=== PATIENT | female | born 1990 | race Caucasian/White ===

== ENCOUNTER 2020-05-07 13:38 | Emergency (ER) | payer OTHER, SELFPAY ==
[2020-05-07 13:52] VITALS: BP 124/67; PULSE 88; RESP 16; TEMP 36; O2SAT 100; BMI 25.0
--- NOTE | 2020-05-07 14:53 | ED.DIZZY ---
HPI - Dizziness General Chief Complaint: Dizziness Stated Complaint: Dizziness, nausea Time Seen by Provider: 05/07/20 14:46 Source: patient Mode of arrival: ambulatory Limitations: no limitations History of Present Illness MD elicited complaint: dizziness and other (sinus headches) Onset (ago): day(s) (yesterday) Timing: sudden onset and intermittent Severity: mild Description: room spinning History of similar symptoms: No Exacerbating factors: other (turning head to right, ear feels full) Relieving factors: remaining still Associated symptoms: nasal congestion and ear fullness Related Data Previous Rx's Medication Instructions Recorded amoxicillin 500 mg PO BID 7 Days #14 cap 05/07/20 meclizine 25 mg PO TID PRN #30 tab 05/07/20 ondansetron 4 mg PO Q8H PRN #20 tab 05/07/20 Allergies Allergy/AdvReac Type Severity Reaction Status Date / Time No Known Allergies Allergy Unverified 02/09/20 18:48 Review of Systems Review of Systems: Constitutional : No Fever, No Chills, No Fatigue ENT/Mouth : No sore throat, No Rhinorrhea, positive congestion, full feeling R ear Eyes: No Eye Pain, No Swelling, No Redness Cardiovascular : No Chest Pain, No SOB, No Dyspnea on Exertion Respiratory : No Cough, No Sputum Gastrointestinal : No Nausea, No Vomiting, No Diarrhea, No abdominal Pain Genitourinary : No Dysuria, No Urinary Frequency, No Hematuria, Musculoskeletal : No joint pain, No Myalgias, No Joint Swelling Skin : No Skin Lesions, No rash Neuro : No Weakness, No Numbness, pos Dizziness, positive Headache Psych : No Anxiety/Panic, No Depression Heme/Lymph: No Bruising, No Bleeding,No Lymphadenopathy Endocrine : No Polyuria, No Polydipsia All other systems reviewed and are negative [facility] Past Medical History Attestation statement: The following information was validated with the patient. Medical History Hypoglycemia Social History Social History (Updated 05/07/20 @ 14:54 by Martha Lopez DO) Use of substances other than those prescribed or required for medical reasons: No Advance Directives: No Advance Directives Information Provided: Yes Physical Exam Vital Signs: Vital Signs: Last Vital Signs Temp 96.8 F 05/07/20 13:52 Pulse 88 05/07/20 13:52 Resp 16 05/07/20 13:52 BP 124/67 05/07/20 13:52 Pulse Ox 100 05/07/20 13:52 Body Mass Index 25.0 Appearance: Alert. Oriented X3. No acute distress. Eyes: Pupils equal, round and reactive to light. ENT: Pharynx normal. Sinus ttp R and L maxillary, R ear TM serous effusion no erythema Neck: Normal inspection. Neck supple. CVS: Normal heart rate and rhythm. Pulses normal. Respiratory: No respiratory distress. Breath sounds normal. Abdomen: Soft and non-tender. Skin: Skin warm and dry. Normal skin color. Normal skin turgor. Extremities: No lower extremity edema. No calf ttp Neuro: Oriented X 3. No motor deficit. No sensory deficit. MDM - Dizziness MDM Narrative Medical decision making narrative: 30 yo female with sinus congestion, R ear fullness c/o dizziness when turning her head to the right likely sinusitis causing vertigo has no deficits, not toxic, start on oral antibiotics, meclizine Discharge Plan Discharge Clinical Impression: Vertigo Sinusitis Qualifiers: Sinusitis location: maxillary Chronicity: acute Recurrence: non-recurrent Qualified Code(s): J01.00 - Acute maxillary sinusitis, unspecified Patient Disposition: Home, Self-Care Instructions: Sinusitis (ED), Vertigo (ED) Additional Instructions: return to ED for any worsening symptoms or concerns Prescriptions: New meclizine 25 mg tablet 25 mg PO TID PRN (Reason: dizziness) Qty: 30 RF: 0 ondansetron 4 mg tablet,disintegrating 4 mg PO Q8H PRN (Reason: nausea and vomiting) Qty: 20 RF: 0 amoxicillin 500 mg capsule 500 mg PO BID 7 Days Qty: 14 RF: 0 Referrals: Geo Khan MD [Primary Care Provider] - 2 days (if not better) Stand Alone Forms: Work/School Release
[2020-05-07] MEDS: Meclizine HCl 25 MG TABLET PO (15:26)
[2020-05-07] MEDS: Amoxicillin 500 MG CAPSULE PO (15:26)
== END 2020-05-07 15:29 | disposition home or self-care (01) ==
PROVIDERS: Emergency Provider Emergency Medicine; PCP Internal Medicine
DX: R42 Dizziness and giddiness (principal); J01.00 Acute maxillary sinusitis, unspecified
CPT/HCPCS: 99283

== ENCOUNTER 2021-02-28 15:36 | Outpatient (REF) | payer OTHER, SELFPAY | END 2021-02-28 15:37 | disposition home or self-care (01) | LOC: HO.LAB 15:36 | PROVIDERS: PCP Internal Medicine; Visit Provider Internal Medicine | DX: Z20.822 Contact with and (suspected) exposure to COVID-19 (principal) | CPT/HCPCS: C9803; U0003; U0005 ==

== ENCOUNTER 2021-09-24 08:38 | Emergency (ER) | payer MEDICAID, SELFPAY ==
[2021-09-24 09:23] VITALS: BP 128/85; PULSE 80; RESP 19; TEMP 36.6; O2SAT 98; BMI 28.2
--- NOTE | 2021-09-24 09:57 | ED.BACK ---
HPI - Back Pain/Injury General Chief Complaint: Back Pain/Injury Stated Complaint: Lower back pain/Leg pain Time Seen by Provider: 09/24/21 09:40 Source: patient Mode of arrival: ambulatory History of Present Illness HPI Narrative: 31-year-old female with no significant past medical history presenting to the ED complaining of bilateral low back pain radiating bilateral lower extremities x1 month. Denies known injury/trauma or fall. Denies fever, chills, urinary incontinence/retention, weakness, numbness/tingling MD elicited complaint: back pain Onset (ago): month(s) Related Data Previous Rx's Medication Instructions Recorded amoxicillin 500 mg capsule 500 mg PO BID 7 Days #14 cap 05/07/20 meclizine 25 mg tablet 25 mg PO TID PRN #30 tab 05/07/20 ondansetron 4 mg disintegrating 4 mg PO Q8H PRN #20 tab 05/07/20 tablet cyclobenzaprine 5 mg tablet 5 mg PO Q8H PRN 5 Days #14 tab 09/24/21 lidocaine 5 % topical patch 1 patch TOPICAL DAILY PRN #30 ea 09/24/21 (Lidoderm) MDD remove after 12 hours naproxen 500 mg tablet 500 mg PO BID PRN 10 Days #20 tab 09/24/21 Allergies Allergy/AdvReac Type Severity Reaction Status Date / Time No Known Allergies Allergy Unverified 02/09/20 18:48 Review of Systems Review of Systems: Constitutional: No Weight loss, No Fever, No Chills ENT/Mouth: No Ear Pain, No Nasal Congestion, No Sinus Pain, No Hoarseness, No sore throat, No Rhinorrhea, No Swallowing Difficulty Cardiovascular: No Chest Pain, No SOB Respiratory: No Cough, No Sputum Gastrointestinal: No Nausea, No Vomiting, No Diarrhea, No Constipation, No Abdominal pain Genitourinary: No Dysuria, No Urinary Frequency, No Hematuria, No Urinary Incontinence/retention, No Flank Pain Musculoskeletal: + joint pain, No Myalgias, No Joint Swelling Skin: No Skin Lesions, No rash Neuro: No Weakness, No Numbness, No Paresthesias Yes all other systems are reviewed and are negative Neurologic: Denies Sensory deficit (Neuro) [facility] Past Medical History Attestation statement: The following information was validated with the patient. Medical History Hypoglycemia Social History Social History Advance Directives: No Advance Directives Information Provided: No Physical Exam Vital Signs: Vital Signs: Last Vital Signs Temp 98 F 09/24/21 09:23 Pulse 80 09/24/21 09:23 Resp 19 09/24/21 09:23 BP 128/85 09/24/21 09:23 Pulse Ox 98 09/24/21 09:23 BMI result Body Mass Index 28.2 Const: General: cooperative, healthy appearing and no acute distress Orientation/consciousness: patient oriented x3 Limitations: no limitations HEENT: Head: Yes normal to inspection and Yes atraumatic Ears: hearing grossly normal bilaterally General nose exam: Normal external nose present Face and sinus: Yes normal facial exam Eyes: General: appearance normal, both eyes and all related structures EOM: EOMs intact bilaterally Neck: Neck: Yes normal visual inspection and Yes no meningeal signs Resp: Effort & Inspection: normal respiratory effort and no respiratory distress Cardio: Rate: regular rate Heart sounds: S1 normal heart sound present and S2 normal heart sound present Peripheral pulses: dorsalis pedis present : General: Yes no CVA tenderness Back/Spine/Pelvis: Other: No midline thoracic/lumbar spinous tenderness/step-off or deformity Back: no CVA tenderness Skin: Rashes: no rashes Wounds: no wounds Neuro: Other: Strength intact throughout. No saddle anesthesia. Sensation intact to light touch. Neurovascular intact distally General: patient oriented x3, gait normal, tone normal, moves all extremities and no meningeal signs Gait exam (Neuro): Normal gait present Motor exam (neuro): 5/5 motor strength present throughout Sensory Exam: No Sensory deficit (Neuro) Extrem: General: Yes normal to inspection MDM - Back Pain/Injury MDM Narrative Medical decision making narrative: 31-year-old female with no significant past medical history presenting to the ED complaining of bilateral low back pain radiating bilateral lower extremities x1 month. On exam vital signs stable, NAD/nontoxic appearing, physical exam as above. No midline spinous tenderness throat, no red flag symptoms. No saddle anesthesia. Likely MSK pain/sciatica/muscle spasm. Low concern for cauda equina, cord compression or epidural abscess Medical Records Attestation: I reviewed the patient's medical records. Lab Data Attestation: I reviewed the patient's lab results. Discharge Plan Discharge Clinical Impression: Lumbar radiculopathy Patient Disposition: Home, Self-Care Instructions: Lumbar Radiculopathy (ED) Additional Instructions: Your pain is likely musculoskeletal Flexeril is a muscle relaxer, take at night as it makes you drowsy, do not drive, drink alcohol, or operate machinery while taking it Naproxen as an anti-inflammatory / pain medication, take with food Lidoderm patches are numbing patches, apply to painful area In addition take Tylenol at home If symptoms persist or worsen, pain becomes unbearable, you developed urinary retention or incontinence, or weakness return to the ED Prescriptions: New lidocaine [Lidoderm] 5 % adhesive patch,medicated 1 patch topical DAILY MDD remove after 12 hours PRN (Reason: pain) Qty: 30 0RF Rx Instructions: leave on most painful area for up to 12 hrs naproxen 500 mg tablet 500 mg PO BID PRN (Reason: pain) 10 Days Qty: 20 0RF cyclobenzaprine 5 mg tablet 5 mg PO Q8H PRN (Reason: pain (scale score 7-10)) 5 Days Qty: 14 0RF No Action meclizine 25 mg tablet 25 mg PO TID PRN (Reason: dizziness) Qty: 30 0RF ondansetron 4 mg tablet,disintegrating 4 mg PO Q8H PRN (Reason: nausea and vomiting) Qty: 20 0RF amoxicillin 500 mg capsule 500 mg PO BID 7 Days Qty: 14 0RF Referrals: Geo Khan MD [Primary Care Provider] - 5 days Stand Alone Forms: Work/School Release
== END 2021-09-24 10:43 | disposition home or self-care (01) ==
PROVIDERS: Emergency Provider Emergency Medicine; PCP Internal Medicine
DX: M54.16 Radiculopathy, lumbar region (principal); M54.50 Low back pain, unspecified; Z79.899 Other long term (current) drug therapy
CPT/HCPCS: 99283

== ENCOUNTER 2023-03-30 14:19 | Emergency (ER) | payer MEDICAID, SELFPAY ==
[2023-03-30 15:05] VITALS: BP 117/80; PULSE 86; RESP 16; TEMP 36.9; O2SAT 100; BMI 27.7
--- NOTE | 2023-03-30 15:10 | ED_ITS ---
HPI - General Adult General Chief complaint: Extremity Problem Stated complaint: abd pain?? Time Seen by Provider: 03/30/23 15:17 Source: patient, RN notes reviewed and old records reviewed Mode of arrival: ambulatory Limitations: no limitations History of Present Illness HPI narrative: 33-year-old female presents for evaluation of right arm pain. 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 Her pain does not usually hurt much throughout the day. At night she has a burning pain She denies any trauma to the area. She sleeps with her arm by her side Currently her pain is a 2/10 Related Data Previous Rx's Medication Instructions Recorded amoxicillin 500 mg capsule 500 mg PO BID 7 days #14 caps 05/07/20 meclizine 25 mg tablet 25 mg PO TID PRN dizziness #30 tabs 05/07/20 ondansetron 4 mg disintegrating 4 mg PO Q8H PRN nausea and 05/07/20 tablet vomiting #20 tabs cyclobenzaprine 5 mg tablet 5 mg PO Q8H PRN pain (scale score 09/24/21 7-10) 5 days #14 tabs lidocaine 5 % topical patch 1 patch topical DAILY PRN pain #30 09/24/21 (Lidoderm) ea naproxen 500 mg tablet 500 mg PO BID PRN pain 10 days #20 09/24/21 tabs cyclobenzaprine 5 mg tablet 5 mg PO TID PRN muscle spasm #15 03/30/23 tabs naproxen 500 mg tablet 500 mg PO BID PRN pain #20 tabs 03/30/23 Allergies Allergy/AdvReac Type Severity Reaction Status Date / Time No Known Allergies Allergy Unverified 02/09/20 18:48 Review of Systems Cardiovascular: Cardiovascular: Denies chest pain Musculoskeletal: Musculoskeletal: Reports arthralgias, Reports joint swelling and Reports limited range of motion Neurologic: Reports radicular pain PMFSH Past Medical History Medical History Hypoglycemia Physical Exam ED Vital Signs: Vital Signs - 24 hr 03/30/23 15:05 Temperature 98.5 F Pulse Rate 86 Respiratory Rate 16 Blood Pressure 117/80 Pulse Oximetry 100 Oxygen Delivery Method Room Air BMI result Body Mass Index 27.7 Const General: healthy appearing, comfortable, no acute distress, alert and awake Nutritional Appearance: well nourished Orientation/consciousness: patient oriented x3 HENMT Head: Yes normocephalic and Yes atraumatic Eyes Eyelids: Yes eyelids normal Conjunctivae: conjunctivae normal Sclerae: sclerae normal Corneas: corneas normal Pupils: Equal, round and reactive pupils present EOM: EOMs intact bilaterally Neck Neck: Yes full ROM Skin General skin exam: elasticity normal Neuro General: patient oriented x3 Cranial nerves: Yes Equal, round and reactive pupils present and Yes Bilaterally intact EOM present Cognition (Neuro): normal cognition Extrem Other: Moving all extremities well without any obvious deformities. No tenderness or deformity to the right upper extremity. Negative Sanna test, negative Tinel test Medical Decision Making Medical Decision Making MDM Narrative: 33-year-old female presents for evaluation of right arm pain. She describes radicular pain. Her pain is worse at night. There was no trauma, there is no indication for emergent imaging at this. Will treat symptomatically. Differential Diagnosis Differential Diagnoses: The differential diagnosis associated with the presentation includes Radiculopathy Bursitis Carpal tunnel syndrome Arm pain lateral epicondylitis Discharge Plan Discharge Clinical Impression: Arm pain, right Patient Disposition: Home, Self-Care Instructions: Arm Pain (ED) Additional Instructions: Your pain is most likely related to an overuse injury such as bursitis or carpal tunnel syndrome Use naproxen as needed for pain. You may use cyclobenzaprine as needed for muscle spasms. This may make you sleepy, did not drink alcohol or drive after taking it Prescriptions: New cyclobenzaprine 5 mg tablet 5 mg PO TID PRN (Reason: muscle spasm) Qty: 15 0RF naproxen 500 mg tablet 500 mg PO BID PRN (Reason: pain) Qty: 20 0RF No Action meclizine 25 mg tablet 25 mg PO TID PRN (Reason: dizziness) Qty: 30 0RF ondansetron 4 mg tablet,disintegrating 4 mg PO Q8H PRN (Reason: nausea and vomiting) Qty: 20 0RF amoxicillin 500 mg capsule 500 mg PO BID 7 Days Qty: 14 0RF lidocaine [Lidoderm] 5 % adhesive patch,medicated 1 patch topical DAILY MDD remove after 12 hours PRN (Reason: pain) Qty: 30 0RF Rx Instructions: leave on most painful area for up to 12 hrs naproxen 500 mg tablet 500 mg PO BID PRN (Reason: pain) 10 Days Qty: 20 0RF cyclobenzaprine 5 mg tablet 5 mg PO Q8H PRN (Reason: pain (scale score 7-10)) 5 Days Qty: 14 0RF Stand Alone Forms: Work/School Release
== END 2023-03-30 15:30 | disposition home or self-care (01) ==
LOC: HO.ED 15:23
PROVIDERS: Emergency Provider Emergency Medicine; PCP Internal Medicine
DX: M79.601 Pain in right arm (principal); Z79.899 Other long term (current) drug therapy
CPT/HCPCS: 99282; 99283

== ENCOUNTER 2023-06-24 14:42 | Outpatient (REF) | payer MEDICAID, SELFPAY ==
[2023-06-25 17:38] LABS: Mumps Virus IgG Antibody <9.00 AU/mL; Rubella IgG Antibody 5.45 Index
== END 2023-06-24 14:43 | disposition home or self-care (01) ==
LOC: HO.HHCL 14:42
PROVIDERS: Visit Provider Internal Medicine
DX: Z00.00 Encounter for general adult medical examination without abnormal findings (principal)
CPT/HCPCS: 36415; 86735; 86762; 86765

== ENCOUNTER 2023-10-15 06:31 | Emergency (ER) | payer MEDICAID, SELFPAY ==
[2023-10-15 06:45] VITALS: BP 102/54; PULSE 115; RESP 16; TEMP 36.7; O2SAT 97; BMI 27.3
--- NOTE | 2023-10-15 07:25 | ED.NAVMDI ---
HPI - Nausea/Vomiting/Diarrhea General Chief complaint: Abdominal Pain Stated complaint: abd pain, vomiting, diarrhea Time Seen by Provider: 10/15/23 07:20 Source: patient and family Mode of arrival: ambulatory Limitations: no limitations History of Present Illness ED Provider: CADEN MONTAGUE Narrative: 33 yo female no PMH here with c/o abrupt onset n/v/d and abdominal cramps denies sick contacts, travel, food exposures or antiboitic use. 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 Notes symptoms came out of nowhere at the same time. Feels weak and tired. MD elicited complaint: nausea, vomiting, diarrhea and abdominal pain Onset (ago): day(s) (yesterday ) Description of vomiting: food contents and watery Description of diarrhea: watery Associated nausea: Yes Associated abdominal pain: Yes Location of pain: diffuse Radiation: diffuse Pain consistency: intermittent Severity: moderate Quality: cramping Exacerbating factors: eating Relieving factors: none Associated symptoms: myalgias, headaches, malaise, nausea/vomiting and weakness Related Data Previous Rx's ?Medication ?Instructions ?Recorded amoxicillin 500 mg capsule 500 mg PO BID 7 days #14 caps 05/07/20 meclizine 25 mg tablet 25 mg PO TID PRN dizziness #30 tabs 05/07/20 ondansetron 4 mg disintegrating 4 mg PO Q8H PRN nausea and 05/07/20 tablet vomiting #20 tabs cyclobenzaprine 5 mg tablet 5 mg PO Q8H PRN pain (scale score 09/24/21 7-10) 5 days #14 tabs lidocaine 5 % topical patch 1 patch topical DAILY PRN pain #30 09/24/21 (Lidoderm) ea naproxen 500 mg tablet 500 mg PO BID PRN pain 10 days #20 09/24/21 tabs cyclobenzaprine 5 mg tablet 5 mg PO TID PRN muscle spasm #15 03/30/23 tabs naproxen 500 mg tablet 500 mg PO BID PRN pain #20 tabs 03/30/23 ondansetron 4 mg disintegrating 4 mg PO Q8H PRN nausea and 10/15/23 tablet vomiting #20 tabs Allergies Allergy/AdvReac Type Severity Reaction Status Date / Time No Known Allergies Allergy Unverified 10/15/23 06:47 Review of Systems Review of Systems: Constitutional : No Weight loss, No Fever, pos Chills ENT/Mouth : No sore throat, No Rhinorrhea Eyes: No Swelling, No Redness Cardiovascular : No Chest Pain, No SOB, NoEdema Respiratory : No Cough, No Sputum, No Wheezing Gastrointestinal : Positive Nausea, Positive Vomiting, positive Diarrhea, positive abdominal Pain, No Hematochezia, No Melena Genitourinary : No Dysuria, No Urinary Frequency, No Hematuria, No Urgency Musculoskeletal : No joint pain, No Myalgias, No Joint Swelling Skin : No Skin Lesions, No rash Neuro : pos Weakness, No Numbness, No Dizziness, No Headache Psych : No Anxiety/Panic, No Depression All other systems reviewed and are negative. Gastrointestinal: Gastrointestinal: Reports nausea PMFSH Past Medical History Attestation statement: The following information was validated with the patient. Source: old records reviewed Medical History Hypoglycemia Social History Social History (Updated 10/15/23 @ 07:42 by Maxine Lopez DO) Patient Tobacco Use Status: Never used Tobacco Advance Directives: No Advance Directives Information Provided: Yes Do you have a plan to hurt others: No Plan Physical Exam Vital Signs: Vital Signs: Last Vital Signs Temp 98.3 F 10/15/23 11:55 Pulse 91 10/15/23 11:55 Resp 18 10/15/23 11:55 BP 96/48 L 10/15/23 11:55 Pulse Ox 97 10/15/23 11:55 O2 Del Method Room Air 10/15/23 11:55 BMI result Body Mass Index 27.3 Appearance: Alert. Oriented X3. No acute distress. Eyes: Pupils equal, round and reactive to light. ENT: Pharynx dry MM Neck: Normal inspection. Neck supple. CVS: Normal heart rate and rhythm. Pulses normal. Respiratory: No respiratory distress. Breath sounds normal. Abdomen: Soft and mild epigastric ttp no rebound Skin: Skin warm and dry. pale skin color. Normal skin turgor. Extremities: No lower extremity edema. Neuro: Oriented X 3. No motor deficit. No sensory deficit. Course Course Course Narrative: tolerating PO feels better after 2L of IVF - up and walking Medications Administered Discontinued Medications Generic Name Dose Route Start Last Admin Trade Name Freq PRN Reason Stop Dose Admin Lactated Ringer's 1,000 mls @ 999 mls/hr 10/15/23 07:30 10/15/23 10:38 Lr IV 10/15/23 08:30 Infused .Q1H1M WILBER Infusion Lactated Ringer's 1,000 mls @ 999 mls/hr 10/15/23 07:30 10/15/23 10:38 Lr IV 10/15/23 08:30 Infused .Q1H1M WILBER Infusion Ketorolac Tromethamine 15 mg 10/15/23 07:24 10/15/23 08:19 Ketorolac Tromethamine 15 Mg/Ml Vial IVPUSH 10/15/23 07:25 15 mg ONCE ONE Administration Ondansetron HCl 4 mg 10/15/23 07:24 10/15/23 08:19 Ondansetron Hcl 4 Mg/2 Ml Vial IVPUSH 10/15/23 07:25 4 mg ONCE ONE Administration Medical Decision Making Medical Decision Making MDM Narrative: 33 yo female with hx of hypoglycemia here with c/o abrupt onset n/v/d cramping of abdomen without known exposures or triggers at this time will obtain glucose, labs, UA and hydrate with 2L of IVF, supportive meds ordered. She has no localized ttp of RUQ or RLQ to suggest appy or biliary colic. Seems viral given onset and rapidity. Differential Diagnosis Differential Diagnoses: The differential diagnosis associated with the presentation includes viral syndrome, hypoglycemia Admission/Observation Consideration of admission/observation: Escalation of care including admission/observation considered tolerating PO feels much better stable for DC Lab Data [facility] Lab Attestation statement: I reviewed the patient's lab results. 10/15/23 08:00 10/15/23 08:00 Labs: Lab Results 10/15/23 10/15/23 10/15/23 Range/Units 07:44 08:00 09:23 WBC 12.6 H (4.8-10.8) X10*3/uL RBC 4.25 (4.20-5.50) X10*6/uL Hgb 12.3 (12.0-16.0) g/dl Hct 36.6 L (37.0-47.0) % MCV 86.1 (80.0-98.0) fL MCH 28.9 (27.0-33.0) pg MCHC 33.6 (31.0-35.0) g/dl RDW 13.2 (11.0-16.0) % Plt Count 292 (160-400) X10*3/uL MPV 9.8 (9.4-12.3) fL Immature Gran % (Auto) 0.2 (0.0-0.4) % Neut % (Auto) 91.8 H (45-73) % Lymph % (Auto) 2.6 L (20-40) % [place] % (Auto) 5.2 (2-11) % Eos % (Auto) 0.0 (0-4) % Baso % (Auto) 0.2 (0-2) % Lymph # (Auto) 0.3 L (1.2-4.9) X10*3/uL [place] # (Auto) 0.7 (0.1-1.2) X10*3/uL Eos # (Auto) 0.0 (0.0-0.4) X10*3/uL Baso # (Auto) 0.0 (0.0-0.2) X10*3/uL Abs Immat Gran (auto) 0.03 (0.00-0.03) X10*3/uL Absolute Neuts (auto) 11.6 H (2.0-8.3) x10*3/uL Absolute Nucleated RBC 0.000 (0.0-0.012) X10*3/uL Nucleated RBC % (auto) 0.0 (0.0-0.2) /100WBC Smear Tech's Comments VERIFIED Sodium 140 (135-145) mmol/L Potassium 3.7 (3.3-5.1) mmol/L Chloride 106 (96-108) mmol/L Carbon Dioxide 22 (22-29) mmol/L Anion Gap 16 (12-20) BUN 15 (9-16) mg/dL Creatinine 0.83 (0.5-1.4) mg/dL Estim Creat Clear Calc 72.0 Estimated GFR > 60 POC Glucose 120 H (60-115) mg/dL Random Glucose 132 H (60-115) mg/dL Calcium 9.6 (8.4-10.2) mg/dL Total Bilirubin 0.4 (0.0-1.0) mg/dL Direct Bilirubin 0.2 (0.0-0.5) mg/dL AST 17 (5-31) U/L ALT 10 (0-31) U/L Alkaline Phosphatase 79 (39-117) U/L Total Protein 8.6 H (6.5-8.0) g/dL Albumin 4.2 (3.5-5.0) g/dL Lipase 63 (8-78) U/L Beta HCG, Quant < 2 mIU/mL Urine Color Urine Appearance Urine pH (5.0-9.0) Ur Specific [place] (1.005-1.025) Urine Protein (Neg-Trace) mg/dL Urine Glucose (UA) (Negative) mg/dL Urine Ketones (Negative) mg/dL Urine Blood (Negative) Urine Nitrite (Negative) Ur Leukocyte Esterase (Negative) Urine RBC (0-2) /HPF Urine WBC (0-5) /HPF Ur Squamous Epith Cells (0-2) /HPF Urine Bacteria (None Seen) Hyaline Casts (0-2) /LPF Influenza Type A (PCR) NEGATIVE (Negative) Influenza Type B (PCR) NEGATIVE (Negative) RSV RNA Qual (PCR) NEGATIVE (Negative) SARS-CoV-2 RNA (RT-PCR) NEGATIVE (Negative) 10/15/23 Range/Units 10:40 WBC (4.8-10.8) X10*3/uL RBC (4.20-5.50) X10*6/uL Hgb (12.0-16.0) g/dl Hct (37.0-47.0) % MCV (80.0-98.0) fL MCH (27.0-33.0) pg MCHC (31.0-35.0) g/dl RDW (11.0-16.0) % Plt Count (160-400) X10*3/uL MPV (9.4-12.3) fL Immature Gran % (Auto) (0.0-0.4) % Neut % (Auto) (45-73) % Lymph % (Auto) (20-40) % [place] % (Auto) (2-11) % Eos % (Auto) (0-4) % Baso % (Auto) (0-2) % Lymph # (Auto) (1.2-4.9) X10*3/uL [place] # (Auto) (0.1-1.2) X10*3/uL Eos # (Auto) (0.0-0.4) X10*3/uL Baso # (Auto) (0.0-0.2) X10*3/uL Abs Immat Gran (auto) (0.00-0.03) X10*3/uL Absolute Neuts (auto) (2.0-8.3) x10*3/uL Absolute Nucleated RBC (0.0-0.012) X10*3/uL Nucleated RBC % (auto) (0.0-0.2) /100WBC Smear Tech's Comments Sodium (135-145) mmol/L Potassium (3.3-5.1) mmol/L Chloride (96-108) mmol/L Carbon Dioxide (22-29) mmol/L Anion Gap (12-20) BUN (9-16) mg/dL Creatinine (0.5-1.4) mg/dL Estim Creat Clear Calc Estimated GFR POC Glucose (60-115) mg/dL Random Glucose (60-115) mg/dL Calcium (8.4-10.2) mg/dL Total Bilirubin (0.0-1.0) mg/dL Direct Bilirubin (0.0-0.5) mg/dL AST (5-31) U/L ALT (0-31) U/L Alkaline Phosphatase (39-117) U/L Total Protein (6.5-8.0) g/dL Albumin (3.5-5.0) g/dL Lipase (8-78) U/L Beta HCG, Quant mIU/mL Urine Color Yellow Urine Appearance Clear Urine pH 5.5 (5.0-9.0) Ur Specific [place] 1.025 (1.005-1.025) Urine Protein Trace (Neg-Trace) mg/dL Urine Glucose (UA) Negative (Negative) mg/dL Urine Ketones Negative (Negative) mg/dL Urine Blood Large (3+) H (Negative) Urine Nitrite Negative (Negative) Ur Leukocyte Esterase Negative (Negative) Urine RBC 3-5 H (0-2) /HPF Urine WBC 0-5 (0-5) /HPF Ur Squamous Epith Cells 3-5 (0-2) /HPF Urine Bacteria Trace (None Seen) Hyaline Casts 0-2 (0-2) /LPF Influenza Type A (PCR) (Negative) Influenza Type B (PCR) (Negative) RSV RNA Qual (PCR) (Negative) SARS-CoV-2 RNA (RT-PCR) (Negative) Independent Historian Clinical information obtained from an independent historian. History obtained from or confirmed by: Other (family) External Record Review External record reviewed: Office record Prescription Management I considered prescription management with: Other Critical Care Time Critical Care Time Critical Care Time: Yes Total Critical Care Time: 35 Attestation: 2L of IVF resuscitation for dehydration I attest to this time spent taking care of the patient Discharge Plan Discharge Clinical Impression: Nausea vomiting and diarrhea, Acute viral syndrome Patient Disposition: Home, Self-Care Instructions: Acute Nausea and Vomiting (ED), Viral Syndrome (ED) Additional Instructions: stay hydrated return for worsening pain fevers, bloody stools, unable to eat or drink, fainting or any other concerns bland diet for 24 hours then advance slowly Prescriptions: New ondansetron 4 mg tablet,disintegrating 4 mg PO Q8H PRN (Reason: nausea and vomiting) Qty: 20 0RF No Action meclizine 25 mg tablet 25 mg PO TID PRN (Reason: dizziness) Qty: 30 0RF ondansetron 4 mg tablet,disintegrating 4 mg PO Q8H PRN (Reason: nausea and vomiting) Qty: 20 0RF amoxicillin 500 mg capsule 500 mg PO BID 7 Days Qty: 14 0RF lidocaine [Lidoderm] 5 % adhesive patch,medicated 1 patch topical DAILY MDD remove after 12 hours PRN (Reason: pain) Qty: 30 0RF Rx Instructions: leave on most painful area for up to 12 hrs naproxen 500 mg tablet 500 mg PO BID PRN (Reason: pain) 10 Days Qty: 20 0RF cyclobenzaprine 5 mg tablet 5 mg PO Q8H PRN (Reason: pain (scale score 7-10)) 5 Days Qty: 14 0RF cyclobenzaprine 5 mg tablet 5 mg PO TID PRN (Reason: muscle spasm) Qty: 15 0RF naproxen 500 mg tablet 500 mg PO BID PRN (Reason: pain) Qty: 20 0RF Stand Alone Forms: Work/School Release Interventions: ED Discharge Assessment Last Done: 10/15/23 11:55 Discharge Date/Time: 10/15/23 11:55 Print Language: [place]ar[place]uan
[2023-10-15 07:48] LABS: Glucose, Whole Blood 120 mg/dL (60-115)
[2023-10-15 08:01] VITALS: BP 98/55; PULSE 100; RESP 20; TEMP 37.3; O2SAT 100
[2023-10-15 08:10] LABS: Basophils Percent Auto 0.2 % (0-2); Hematocrit 36.6 % (37.0-47.0); Hemoglobin 12.3 g/dl (12.0-16.0); Imm Gran Abs Auto 0.03 X10*3/uL (0.00-0.03); Imm Gran Pct Auto 0.2 % (0.0-0.4); Lymphocytes Absolute Auto 0.3 X10*3/uL (1.2-4.9); Lymphocytes Percent Auto 2.6 % (20-40); MANUAL DIFF FLAG SCAN; Mean Corpuscular HGB Conc 33.6 g/dl (31.0-35.0); Mean Corpuscular Hemoglobin 28.9 pg (27.0-33.0); Mean Corpuscular Volume 86.1 fL (80.0-98.0); Mean Platelet Volume 9.8 fL (9.4-12.3); Monocytes Absolute Auto 0.7 X10*3/uL (0.1-1.2); Monocytes Percent Auto 5.2 % (2-11); Neutrophils Absolute Auto 11.6 x10*3/uL (2.0-8.3); Neutrophils Percent Auto 91.8 % (45-73); Platelet Count 292 X10*3/uL (160-400); Red Blood Count 4.25 X10*6/uL (4.20-5.50); Red Cell Distribution Width 13.2 % (11.0-16.0); SCAN SMEAR FLAG 1; White Blood Count 12.6 X10*3/uL (4.8-10.8)
[2023-10-15] MEDS: Lactated Ringers 1,000 ML 999 ML IV ×2 (08:15)
[2023-10-15] MEDS: Ketorolac Tromethamine 15 MG/ML VIAL IVPUSH (08:19)
[2023-10-15] MEDS: ondansetron HCL 4 MG/2 ML VIAL IVPUSH (08:19)
[2023-10-15 08:23] LABS: Anion Gap 16 (12-20); Blood Urea Nitrogen 15 mg/dL (9-16); Calcium 9.6 mg/dL (8.4-10.2); Carbon Dioxide 22 mmol/L (22-29); Chloride 106 mmol/L (96-108); Estimated Glomerular Filt Rate > 60; Glucose Random 132 mg/dL (60-115); Potassium 3.7 mmol/L (3.3-5.1); Sodium 140 mmol/L (135-145)
[2023-10-15 08:34] LABS: Alanine Aminotransferase 10 U/L (0-31); Albumin Level 4.2 g/dL (3.5-5.0); Alkaline Phosphatase 79 U/L (39-117); Aspartate Amino Transferase 17 U/L (5-31); Bilirubin Direct 0.2 mg/dL (0.0-0.5); Bilirubin Total 0.4 mg/dL (0.0-1.0); HCG Quantitative < 2 mIU/mL; Lipase 63 U/L (8-78); Total Protein 8.6 g/dL (6.5-8.0)
[2023-10-15 08:56] LABS: SLIDE REVIEW VERIFIED
[2023-10-15 09:26] VITALS: BP 97/43; PULSE 99; RESP 20; TEMP 36.9; O2SAT 100
[2023-10-15 10:17] LABS: Influenza A PCR NEGATIVE (Negative); Influenza B PCR NEGATIVE (Negative); Resp Syncy Virus RNA Qual PCR NEGATIVE (Negative); SARS COV2 PCR INHOUSE NEGATIVE (Negative)
[2023-10-15 10:50] LABS: Appearance Urine Clear; Color Urine Yellow; Glucose Urine UA Negative (Negative); Leukocyte Esterase Urine Negative (Negative); Nitrite Urine Negative (Negative); PH 5.5 (5.0-9.0); Specific Gravity - Urine 1.025 (1.005-1.025); UMIC TRIGGER UACC YES; Urine Blood Large (3+) (Negative); Urine Ketones Negative (Negative); Urine Protein Trace mg/dL (Neg-Trace)
[2023-10-15 11:02] LABS: Bacteria Urine Trace (None Seen); Hyaline Casts Urine 0-2 /LPF (0-2); WBC Urine 0-5 /HPF (0-5)
[2023-10-15 11:55] VITALS: BP 96/48; PULSE 91; RESP 18; TEMP 36.8; O2SAT 97
== END 2023-10-15 11:55 | disposition home or self-care (01) ==
PROVIDERS: Emergency Provider Emergency Medicine; PCP Internal Medicine
DX: B34.9 Viral infection, unspecified (principal); R10.9 Unspecified abdominal pain; R11.2 Nausea with vomiting, unspecified
CPT/HCPCS: 0241U; 36415; 80048; 80076; 81001; 82947; 83690; 84702; 85025; 96361; 96374; 96375; 99284; 99285; J1885; J2405; J7120

== ENCOUNTER 2024-03-16 16:37 | Outpatient (REF) | payer MEDICAID, SELFPAY ==
[2024-03-21 12:49] LABS: HPV mRNA E6/E7 Not Detected (Not Detected)
[2024-03-22 10:52] LABS: Trichomonas (NAAT) NOT DETECTED
[2024-03-22 10:53] LABS: C. trachomatis RNA TMA NOT DETECTED; N. gonorrhoeae RNA TMA NOT DETECTED
== END 2024-03-16 16:38 | disposition home or self-care (01) ==
LOC: HO.HHCLNP 16:37
PROVIDERS: Visit Provider Advanced Practice Midwife
DX: Z11.3 Encounter for screening for infections with a predominantly sexual mode of transmission (principal)
CPT/HCPCS: 36415; 87491; 87591; 87624; 87661; 88175

== ENCOUNTER 2024-04-06 10:33 | Outpatient (REF) | payer MEDICAID, SELFPAY ==
--- NOTE | ~2024-04-06 | US_ITS ---
EXAMINATION: US PELVIS CLINICAL INFORMATION: Left lower quadrant pain COMPARISON: September 22, 2015 LMP 03/28/2024 TECHNIQUE: Ultrasound of the pelvis is performed using both transabdominal and transvaginal transducers along with Doppler. Transvaginal imaging is performed due to inadequate visualization transabdominally. FINDINGS: Uterus: The uterus is anteverted and measures 7.5 x 3.9 x 4.1 cm. The double wall endometrial thickness is 0.7 cm with questionable small filling defect in the fundus measured 0.8 x 0.5 x 0.6 cm possibly endometrial polyp versus folded endometrium. There is no fluid in endometrial canal or cervix Nabothian cysts are present. The uterus is smooth in contour and has normal myometrial echogenicity. No visible fibroid. Adnexa: Both ovaries are visualized. There is normal color flow to the adnexa. There is no ovarian torsion. There is no pelvic ascites or fluid collection. Right ovary measures 2.9 x 1.8 x 1.8 cm., With a volume of 4.9 mL and with paraovarian right adnexal cyst measured 1.2 x 1.0 x 0.9 cm. Left ovary measures 2.2 x 1.2 x 1.1 cm. There is volume of left ovary measured 1.5 mL. There are no cysts or dominant follicles seen on the left. US/US pelvic and transvaginal IMPRESSION: Patient unable small fundal endometrial polyp versus fold of endometrium in the fundus. Correlate clinically Electronically signed by: Jonathan Doyle MD 04/06/2024 02:50 PM EST
== END 2024-04-06 10:34 | disposition home or self-care (01) ==
LOC: HO.US 10:33
PROVIDERS: PCP Internal Medicine; Visit Provider Advanced Practice Midwife
DX: R10.2 Pelvic and perineal pain (principal)
CPT/HCPCS: 76830; 76856

== ENCOUNTER 2024-05-06 20:01 | Emergency (ER) | payer MEDICAID, SELFPAY ==
[2024-05-06 21:37] VITALS: BP 110/72; PULSE 125; RESP 19; TEMP 36.6; O2SAT 98; BMI 27.8
[2024-05-06 22:43] LABS: Basophils Percent Auto 0.3 % (0-2); Eosinophils Percent Auto 0.2 % (0-4); Hematocrit 36.1 % (37.0-47.0); Hemoglobin 12.5 g/dl (12.0-16.0); Imm Gran Abs Auto 0.05 X10*3/uL (0.00-0.03); Imm Gran Pct Auto 0.3 % (0.0-0.4); Lymphocytes Absolute Auto 0.5 X10*3/uL (1.2-4.9); Lymphocytes Percent Auto 3.1 % (20-40); MANUAL DIFF FLAG SCAN; Mean Corpuscular HGB Conc 34.6 g/dl (31.0-35.0); Mean Corpuscular Hemoglobin 29.2 pg (27.0-33.0); Mean Corpuscular Volume 84.3 fL (80.0-98.0); Mean Platelet Volume 9.5 fL (9.4-12.3); Monocytes Absolute Auto 0.8 X10*3/uL (0.1-1.2); Neutrophils Absolute Auto 14.2 x10*3/uL (2.0-8.3); Neutrophils Percent Auto 91.1 % (45-73); Platelet Count 298 X10*3/uL (160-400); Red Blood Count 4.28 X10*6/uL (4.20-5.50); Red Cell Distribution Width 12.8 % (11.0-16.0); SCAN SMEAR FLAG 1; White Blood Count 15.6 X10*3/uL (4.8-10.8)
[2024-05-06 22:57] LABS: Alanine Aminotransferase 16 U/L (0-31); Albumin Level 4.2 g/dL (3.5-5.0); Alkaline Phosphatase 81 U/L (39-117); Anion Gap 14 (12-20); Aspartate Amino Transferase 26 U/L (5-31); Bilirubin Direct 0.2 mg/dL (0.0-0.5); Bilirubin Total 0.4 mg/dL (0.0-1.0); Blood Urea Nitrogen 14 mg/dL (9-16); Calcium 9.2 mg/dL (8.4-10.2); Carbon Dioxide 24 mmol/L (22-29); Chloride 106 mmol/L (96-108); Creatinine Clr Calc Pharmacy 80.8; Estimated Glomerular Filt Rate > 60; Glucose Random 122 mg/dL (60-115); Lipase 43 U/L (8-78); Potassium 3.9 mmol/L (3.3-5.1); Sodium 140 mmol/L (135-145); Total Protein 8.4 g/dL (6.5-8.0)
[2024-05-06 23:09] LABS: SLIDE REVIEW VERIFIED
[2024-05-06 23:19] LABS: Influenza A PCR NEGATIVE (Negative); Influenza B PCR NEGATIVE (Negative); Resp Syncy Virus RNA Qual PCR NEGATIVE (Negative); SARS COV2 PCR INHOUSE NEGATIVE (Negative)
[2024-05-07 01:15] VITALS: BP 114/68; PULSE 113; RESP 18; TEMP 35.6; O2SAT 97
[2024-05-07] MEDS: Ondansetron ODT 4 MG TAB.RAPDIS TRANSLINGU (01:19)
== END 2024-05-07 03:30 | disposition left against medical advice (07) ==
PROVIDERS: Emergency Provider Internal Medicine
DX: R11.2 Nausea with vomiting, unspecified (principal); R19.7 Diarrhea, unspecified; Z03.818 Encounter for observation for suspected exposure to other biological agents ruled out; Z53.21 Procedure and treatment not carried out due to patient leaving prior to being seen by health care provider
CPT/HCPCS: 0241U; 80048; 80076; 83690; 85025; 99281

== ENCOUNTER 2025-04-03 15:24 | Outpatient (REF) | payer MEDICAID, SELFPAY ==
--- OUTSIDE RECORDS SUMMARY | 2025-03-30 14:30 | XMS_ITS | Encounter Summary ---
Author Organization [email or web address] Address [address] [facility] [address] [facility] [address] [place] [address] Care Team Providers Care Fast Food Worker Name Role Phone Geo Hinojosa MD Primary Care Provide r Encounter Details Date Type Department Care Team ([facility] st Contact Info) Description 03/30/2025 2:30 PM EST Office Visit [facility] [address] [place] [address] Geo Hinojosa MD [address] [place] [address] Routine physical examination (Primary Dx); Obesity (BMI [...] than half the days 03/30/2025 3:10 PM Malloyr Rodriguez MA * Poor appetite or overeating [...] 1 03/30/2025 3:11 PM EST Renata reyes MalloryKATELYN Being so restless that it is hard to sit still 0 03/30/2025 3:11 PM EST Santillan KATELYN Tejada Becoming easily annoyed or irritable 2 10/2024 3:11 PM EST Mallory Santilaln MA Feeling afraid as if somethi ng [...] Routine physical exam within normal limits [facility] health care (V70.0). P.E : 03/30/2025 Normal [...] PM EST Narrative 04/03/2025 4:23 PM EST [address] [address] XRay Report Signed Patient: Yessica Marcano MR# : [id number] : 1990 Acct:[id number] Age/Sex: 35 / F ADM Date: 04/03/25 Loc: HOALFIECX Attending Dr: Geo Khan MD Ordering Physician: Geo Khan MD Date of Service: 04/03/25 Procedure(s): XR hand LT min 3V Accession Number(s): [id number] cc: Geo Khan MD Reason for Exam: [...] by: Clifford Munoz MD 04/03/2025 04:21 PM [facility] Dictated By: Clifford Munoz MD Signed By: <Electronically signed by Clifford Munoz MD in OV> 04/03/25 1621 DD/ 1608 TD/TT: 04/03/25 1610 Blow Torch Operator: Procedure Note Donotuseinterpreter, Image - 04/03/[address] [address] XRay Report Signed Patient: Kris Marcano# : [id number] : 1990Acct:[id number] Age/Sex: 35 / FADM Date: 04/03/25 Loc: LYNNCX Attending Dr: Geo Khan MD Ordering Physician: Geo Khan MD Date of Service: 04/03/25 Procedure(s): XR hand LT min 3V Accession Number(s): [id number] cc: Geo Khan MD Reason for Exam: [...] 04/03/25 1621 DD/ 1608 TD/TT: 04/03/25 1610 Blow Torch Operator: MELANIE us Geo Martinez MD IMG XR [...] documented as of this encounter Care Teams Fast Food Worker Relationship Specialty Start Date End Date Geo Hinojosa MD [address] [place] [id number] PCP - General Internal Medicine 08/04/14 documented as of this encounter
--- NOTE | ~2025-04-03 | XR_ITS ---
EXAMINATION: XR HAND, LEFT CLINICAL INFORMATION: left index finger pain COMPARISON: None available. TECHNIQUE: Four views of the left hand. FINDINGS: Index finger: Mild-moderate DIP joint space narrowing. Possible subtle central erosion medially. No visible acute fracture, dislocation or suspicious bony lesion. Mild soft tissue swelling. No abnormal soft tissue calcification. Mild third DIP joint space narrowing. No acute fracture or dislocation. No erosions. No abnormal soft tissue calcification. XR/XR hand LT min 3V IMPRESSION: Mild-moderate second DIP joint space arthritis. Electronically signed by: Clifford Munoz MD 04/03/2025 04:21 PM EST
--- OUTSIDE RECORDS SUMMARY | 2025-04-03 17:29 | XMS_ITS | Encounter Summary ---
Author Organization [employer] Address [address] [place] [address] Care Team Providers Care Real Estate Specialist Name Role Phone Geo Hinojosa MD Primary Care Provide r Encounter Details Date Type Department Care Team ([facility] st Contact Info) Description 03/29/2025 Telephone [facility] [address] [place] [address] Paris Yanez MA Social History Tobacco Use Types Packs/Day Years Used Date Smoking Tobacco: Never Passive Smoke Exposure: Never Smokeless Tobacco: Never Depression Answer Date Recorded Patient Health Questionnaire-9 Score 9 03/30/2025 Patient Health Questionnaire-9 Score 9 03/30/2025 Last PHQ-9: Questionnaire Data Not on file 1 05/30/2024 Housing Stability Answer Date Recorded What is your housing situation today? I have rejipratik padilla 03/30/[address] you [...] AM EDT documented as of this encounter Miscellaneous Notes * Telephone Encounter - Paris Yanez MA - 03/29/2025 11:34 AM EST Chart Prep Labs: not applicable Images: not applicable Referrals: not applicable Vaccines due: Covid, Flu, Hep B, and HPV Screenings: HIV SCREENING Overdue care gaps: SBIRT, PHQ-9, and Disability screen documented in this encounter Plan of Treatment Not on file documented as of this encounter Visit Diagnoses Not on filedocumented in this encounter Additional Health Concerns Assessment Noted Time PHQ-9 Depression Total Score: 1 02/29/20 24 9:20 AM EDT documented as of this encounter Care Teams Real Estate Specialist Relationship Specialty Start Date End Date Geo Hinojosa MD [address] [place] [address] PCP - General Internal Medicine 08/04/14 documented as of this encounter
--- OUTSIDE RECORDS SUMMARY | 2025-04-03 17:29 | XMS_ITS | Clinical Summary ---
Author Organization [employer] Address [address] [place] [address] Care Team Providers Care Communications Advisor Name Role Phone Geo Hinojosa MD Primary Care Provide r Allergies No known active allergies Medications fluticasone (Flonase) 50 MCG/ACT nasal sprayIndication s:Chronic maxillary sinusitis Administer 1-2 sprays into each nostril Once per day. Shake gently. Before first use, prime pump. After use, clean tip and replace cap. 16 g 5 12/31/19 26 Active cetirizine (ZyrTEC) 10 MG tabletIndicatio ns:Chronic maxillary sinusitis Take 1 tablet (10 mg) by mouth Once per day. 30 tablet 11 5 12/31/19 26 Active Ascorbic Acid (vitamin C) 250 MG tabletIndicatio ns:Chronic maxillary sinusitis Take 1 tablet (250 mg) by mouth Once per day. 90 tablet 3 5 12/31/19 26 Active meloxicam (Mobic) 15 MG tabletIndicatio ns:Finger pain, left Take 1 tablet (15 mg) by mouth Once per day. 30 tablet 11 5 03/30/20 26 Active Active Problems Problem Noted Date Diagnosed Date Routine physical examination 01/29/2023 Assessment & Plan (03/30/2025 2:50 PM EST): Routine physical exam within normal limits Preventative health care (V70.0). P.E : 03/30/2025 Normal Pap Smear: 01/09/2021 Normal Hep B series: sep 29 2014 Assessment & Plan (01/29/2023 3:47 PM EDT): Routine physical exam within normal limits Preventative health care (V70.0). P.E : 01/29/2023 Normal Pap Smear: 01/09/2021 Normal Hep B series: sep 29 2014 Obesity (BMI 30-39.9) 01/29/2023 Assessment & Plan (03/30/2025 2:51 PM EST): Patient has been counseled and educated about diet and exercise. Personal goal of weight loss discussed Assessment & Plan (01/29/2023 3:48 PM EDT): Patient has been counseled and educated about diet and exercise. Personal goal of weight loss discussed Acid reflux 08/08/2014 Anxiety 08/08/2014 Encounters Date Type Department Care Team Description 03/30/2025 2:30 PM EST Office Visit [facility] MEDICINE [address] [place] [phone] Geo Hinojosa MD Routine physical examination (Primary Dx); Obesity (BMI 30-39.9); Finger pain, left 03/30/2025 Travel 03/29/2025 Telephone [facility] WALK-IN CENTER [address] [place] [address] Paris Yanez MA 03/23/2025 Patient Outreach [facility] [address] [place], [place] [phone] Geo Hinojosa MD Pre-visit Planning (SDOH negative, Tobacco screening negative. ) 03/02/2025 Telephone [facility] MEDICINE [address] [place] [address] Geo Hinojosa MD No Show 03/01/2025 Telephone [facility] MED[facility]INE [address] [place] [phone] Geo Hinojosa MD chart prep 02/23/2025 Patient Outreach [facility] [address], [place] [phone] Geo Hinojosa MD Pre-visit Planning (SDOH unable to reach LVM ) 01/18/2025 Telephone [facility] MEDICINE [address] [place] [address] Geo Hinojosa MD Appointment Confirmation 01/04/2025 Telephone [facility] WALK[facility]IN [facility]ENTER [address] [place] [address] Paris Yanez MA from Last 3 Months Immunizations Immunization Administration Dates Next Due Hep B, adult 09/29/2014,08/29/2014 MMR 07/06/2023 PPD Test 02/02/2023 TD (adult), 2 Lf tetanus tox oid, preservative free, adsorbed 10/07/2018 Tdap 08/29/2014 Family History Medical History Relation Name Comments Pancreatic cancer Cousin 1 Breast cancer Cousin 2 Diabetes Father Arthritis Mother Diabetes Mother Breast cancer Mother's Sister Relation Name Status Comments Cousin 1 Cousin 2 Alive Father Mother Mother's Sister Social History Tobacco Use Types Packs/Day Years Used Date Smoking Tobacco: Never Passive Smoke Exposure: Never Smokeless Tobacco: Never Tobacco Cessation:Counseling Given: Not Answered Depression Answer Date Recorded Patient Health Questionnaire-9 [...] not to disclose 2021 10:27 AM EDT Last Filed Vital Signs Vital Sign Reading [...] Mass Index 31.42 03/30/2025 2:35 PM EST Plan of Treatment Health Maintenance Due Date Last Done Comments HIV Screening 1990 Lipid Panel 1990 Family Planning (PISQ) 01/22/2003 HPV Vaccines (1 - 3-dose series) 01/22/2003 Hepatitis C Screening 01/22/2006 Hepatitis B Vaccines (3 of 3 - 19+ 3-dose series) 02/28/2015 09/29/2014, 08/29/2014 COVID-19 Vaccine ( - 2023-2 5 season) 2025 Influenza Vaccine (#1) 2025 Depression Monitoring 09/27/2025 03/30/2025 , 03/30/2025 Alcohol/Substance Use Screening 03/30/2026 03/30/2025 Disability Screening 03/30/2026 03/30/2025 SDOH Screening 03/30/2026 03/30/2025 Tobacco Screening 03/30/2026 03/30/2025 DTaP/Tdap/Td Vaccines (3 - T d or Tdap) 10/07/2028 10/07/2018, 08/29/2014 Cervical Cancer Screening 03/16/2029 HPV/Cotest 03/16/2029 03/16/2024, 01/09/2021 Pap Smear 03/16/2029 03/16/2024, 01/09/2021 Zoster Vaccines (1 of 2) 01/22/2038 RSV Patients and Patients Aged 60 years or older (1 - 1-dose 75+ series) 01/22/2063 HIB Vaccines Aged Out No longer eligi ble based on patient's age to complete this topic Hepatitis A Vaccines Aged Out No long er eligible based on patient's age to complete this topic IPV Vaccines Aged Out No longer eligi ble based on patient's age to complete this topic Meningococcal B Vaccine Aged Out No l onger eligible based on patient's age to complete this topic Meningococcal Vaccine Aged Out No jillian niraj eligible based on patient's age to complete this topic Pneumococcal Vaccine: Pediatrics (0 to 5 Years) and At-Risk Patients (6 to 49) Years Aged Out No longer eligible b ased on patient's age to complete this topic RSV under 20 months Aged Out No longe r eligible based on patient's age to complete this topic Rotavirus Vaccines Aged Out No longer eligible based on patient's age to complete this topic Procedures Procedure Name Priority Date/Time Associated Diagnosis Comments XR HAND 3+ VIEWS LEFT Routine 04/03/2025 4:08 PM EST Finger pain, left THINPREP IMAGING PAP AND HPV MRNA E6/E7 Routine 03/16/2024 9:48 AM EDT from Last 3 Months or Most Recently Relevant to Health Maintenance Results * XR Hand 3+ Views Left (04/03/2025 4:08 PM EST) Anatomical Region Laterality Modality Upper Extremities, Hand Left Radiogra phic Imaging 04/03/2025 4:08 PM EST Narrative 04/03/2025 4:23 PM EST [address] [address] XRay Report Signed Patient: Yessica Marcano MR# : [id number] : 1990 Acct:[id number] Age/Sex: 35 / F ADM Date: 04/03/25 Loc: HOALFIECX Attending Dr: Geo Khan MD Ordering Physician: Geo Khan MD Date of Service: 04/03/25 Procedure(s): XR hand LT min 3V Accession Number(s): [id number] cc: Geo Khan MD Reason for Exam: [...] Clifford Munoz MD 04/03/2025 04:21 PM EST Dictated By: Clifford Munoz MD Signed By: <Electronically signed by Clifford Munoz MD in OV> 04/03/25 1621 DD/ 1608 TD/TT: 04/03/25 1610 Caterer'S Aide: Procedure Note Donotuseinterpreter, Image - 04/03/[address] [address] XRay Report Signed Patient: Kris Marcano# : [id number] : 1990Acct:[id number] Age/Sex: 35 / FADM Date: 04/03/25 Loc: LYNNCX Attending Dr: Geo Khan MD Ordering Physician: Geo Khan MD Date of Service: 04/03/25 Procedure(s): XR hand LT min 3V Accession Number(s): [id number] cc: Geo Khan MD Reason for Exam: [...] Clifford Munoz MD 04/03/2025 04:21 PM EST Dictated By: Clifford Munoz MD Signed By: <Electronically signed by Clifford Munoz MD in OV> 04/03/25 1621 DD/ 1608 TD/TT: 04/03/25 1610 Caterer'S Aide: MELANIE us Geo Martinez MD IMG XR PROCEDURES Tello casa Result - Final * ThinPrep Imaging Pap and HPV mRNA E6/E7 (03/16/2024 9:48 AM EDT) HPV nRNA E6/E7 Not Detected Not Detected [facility] Comment:Methodology: Transcr iption-Mediated AmplificationThis assay detects E6/E7 viral messenger RNA (mRNA) from 14high-risk HPV types (16,18,31,33,35,39,45,51,52,56,58,59,66,68).Cervical sources are required for HPV testing.If a vaginal source from a patient who has had atotal hysterectomy with removal of cervix wassubmitted, please contact the testing laboratoryfor alternative testing options.For additional information, please refer tohttp://education.[employer]/faq/XHL228q6(This link if provided for information/educational purposes only.)THIS TEST WAS PERFORMED AT:[employer] [place] [phone] JONES MD SOURCE: SEE NOTE [facility] Comment:None given Report Status: TNP [facility] Clinical Information: SEE NOTE [facility] Comment:None given LMP: SEE NOTE [facility] Comment:NONE GIVEN Prev. PAP: SEE NOTE [facility] Comment:NONE GIVEN Prev. BX: SEE NOTE [facility] Comment:NONE GIVEN Statement Of Adequacy: SEE NOTE [facility] Comment:Satisfactory for wendie luation.Endocervical/transformation zone component absent. General Categorization: [facility] Interpretation/Result: SEE NOTE [facility] Comment:Cytology Results: Ne gative for intraepitheliallesion or malignancy. Cytology Comment SEE NOTE [facility] Comment:This Pap test has be en evaluated with computerassisted technology. Maintenance Construction Helper: SEE NOTE [facility] Comment:RXB, CT(ASCP)CT scre ening location: [place] [address] Review Maintenance Construction Helper: [facility] Pathologist [facility] PAP Infection SEE NOTE [facility] Comment:Shift in vaginal caitlyn ra suggestive of bacterialvaginosis. See Note SEE NOTE [facility] Comment:EXPLANATORY NOTE:The Pap is a screening test for cervical cancer. It isnot a diagnostic test and is subject to false negativeand false positive results. It is most reliable when asatisfactory sample, regularly obtained, is submittedwith relevant clinical findings and history, and whenthe Pap result is evaluated along with historic andcurrent clinical information. 03/16/2024 9:48 AM EDT 03/16/2024 4:39 PM EDT Narrative [facility] - 03/22/2024 10:51 AM EDT SEE SCANNED RESULTS IN EMR Neisha Wiley CNM LAB PATHOLOGY ORDERABLES Final Result [facility] [address] [place] [address] [phone] from Last 3 Months or Most Recently Relevant to Health Maintenance Insurance [employer] C3 Care Teams Communications Advisor Relationship Specialty Start Date End Date Geo Hinojosa MD [address] [place] [phone] PCP - General Internal Medicine 08/04/14
--- OUTSIDE RECORDS SUMMARY | 2025-04-03 17:29 | XMS_ITS | Encounter Summary ---
Author Organization [employer] Address [address] [place] [address] Care Team Providers Care Mirror Specialist Name Role Phone Geo Hinojosa MD Primary Care Provide r Encounter Details Date Type Department Care Team (Latest Contact Info) Description 03/30/2025 Travel Social History Tobacco Use Types Packs/Day Years [...] AM EDT documented as of this encounter Functional Status * Over the past 2 weeks, how often have you been bothered by any of the following problems? Question Answer Date of Assessment Author Patient Health Questionnaire-2 Score 2 10/2024 3:10 PM EST Mallory Santillan MA * Little interest or pleasure in doing things Answer Date of Assessment Author More than half the days 03/30/2025 3:10 PM EST S ericCorineuyomy MA * Feeling down, depressed, or hopeless Answer Date of Assessment Author Not at all 03/30/2025 3:10 PM EST Jolie Santillan MA * Trouble falling or staying asleep, or sleeping too much Answer Date of Assessment Author More than half the days 03/30/2025 3:10 PM EST S ericTimothyomy MA * Feeling tired or having little energy Answer Date of Assessment Author More than half the days 03/30/2025 3:10 PM EST S eric, [place], [place] * Poor appetite or overeating Answer Date of Assessment Author More than half the days 03/30/2025 3:10 PM EST S ericCorineuyomy MA * Feeling bad about yourself - or that you are a failure or have let yourself or your family down Answer Date of Assessment Author Not at all 03/30/2025 3:10 PM EST Jolie Santillan MA * Trouble concentrating on things, such as reading the newspaper or watching television Answer Date of Assessment Author Several days 03/30/2025 3:10 PM EST Jolie Santillan MA * Moving or speaking so slowly [...] erent things 1 03/30/2025 3:11 PM EST Mallory Santillan MA Trouble relaxing 1 03/30/2025 3:11 PM EST S Mallory reyes MA Being so restless that it is hard to sit still 0 03/30/2025 3:11 PM Mallory Honeycutt MA Becoming easily annoyed or irritable 2 10/2024 3:11 PM EST Mallory Santillan MA Feeling afraid as if somethi ng awful might happen 2 03/30/2025 3:11 PM EST Mallory Santillan MA CLARK-7 Total Score 8 03/30/2025 3:11 PM Mallory Honeycutt MA documented as of this encounter Plan of Treatment Not on file documented as of this encounter Visit Diagnoses Not on filedocumented in this encounter Additional Health Concerns Assessment Noted Time PHQ-9 Depression Total Score: 9 03/30/20 25 3:10 PM EST documented as of this encounter Care Teams Mirror Specialist Relationship Specialty Start Date End Date Geo Hinojosa MD [address] [place] [address] PCP - General Internal Medicine 08/04/14 documented as of this encounter
== END 2025-04-03 15:25 | disposition home or self-care (01) ==
LOC: HO.HHCX 15:24
PROVIDERS: PCP Internal Medicine; Visit Provider Internal Medicine
DX: M79.645 Pain in left finger(s) (principal)
CPT/HCPCS: 73130

== ENCOUNTER → 2025-04-03 15:30 | Outpatient (BNV) | payer MEDICAID, SELFPAY | PROVIDERS: PCP Internal Medicine; Visit Provider Radiology Diagnostic Ultrasound | DX: M79.645 Pain in left finger(s) (principal) | CPT/HCPCS: 73130 ==

== ENCOUNTER 2025-04-04 11:09 | Outpatient (REF) | payer MEDICAID, SELFPAY ==
--- OUTSIDE RECORDS SUMMARY | 2025-03-30 14:30 | XMS_ITS | Encounter Summary ---
Author Organization [employer] Address [address] [place] [address] Care Team Providers Care Plastics And Composites Inspector Name Role Phone Geo Hinojosa MD Primary Care Provide r Encounter Details Date Type Department Care Team ([facility] st Contact Info) Description 03/30/2025 2:30 PM EST Office Visit [facility] [address] [place] [address] Geo Hinojosa MD [address] [place] [address] Routine physical examination (Primary Dx); Obesity (BMI 30-39.9); Finger pain, left Social History Tobacco Use Types Packs/Day Years Used Date Smoking Tobacco: Never Passive Smoke Exposure: Never Smokeless Tobacco: Never Depression Answer Date Recorded Patient Health Questionnaire-9 Score 9 03/30/2025 Patient Health Questionnaire-9 Score 9 03/30/2025 Last PHQ-9: Questionnaire Data Not on file 1 05/30/2024 Housing Stability Answer Date Recorded What is your housing situation today? I have reji padilla 03/30/[address] you li ve. Do you have problems with any of the following? Pests such as bugs, ants, or mice;Inadequate heat 03/30/2025 Food Insecurity Answer Date Recorded Within the past 12 months, y ou worried that your food would run out before you got money to buy more: Often true 03/30/2025 Within the past 12 months,th e food you bought just didn't last and you didn't have enough money to get more: Often true 10/2024 Transportation Answer Date Recorded In the past 12 months, has l ack of transportation kept you from medical appts, meetings, work or from getting things needed for daily living? No 03/23/2025 Utilities Answer Date Recorded In the past 12 months, has t he electric, gas, oil or water company threatened to shut off services in your home? Yes 03/30/2025 Depression Answer Date Recorded Patient Health Questionnaire-2 Score 2 03/30/2025 Internet Access Answer Date Recorded Internet Access Q1 Yes 03/23/2025 Internet Access Q2 Not on file 03/23/2025 Comments No Sex and Gender Information Value Date Recorded Sex Assigned at Female 03/24/2022 10:27 AM EDT Legal Sex Female 10:27 AM EDT Gender Identity Female 03/24/2022 10:27 AM EDT Sexual Orientation Choose not to disclose 2021 10:27 AM EDT documented as of this encounter Last Filed Vital Signs Vital Sign Reading Time Taken Comments Blood Pressure 124/80 03/30/2025 2:35 PM EST Pulse 83 03/30/2025 2:35 PM EST Temperature 36.4 C (97.6 F) 03/30/2025 2:35 PM EST Respiratory Rate 16 03/30/2025 2:35 PM EST Oxygen Saturation 98% 03/30/2025 2:35 PM EST Inhaled Oxygen Concentration - - Weight 70.8 kg (156 lb 2 oz) 03/30/2025 2:35 PM EST Height 150.1 cm (4' 11.11 ) 03/30/2025 2:[address] Body Mass Index 31.42 03/30/2025 2:35 PM EST documented in this encounter Functional Status * Over the past 2 weeks, how often have you been bothered by any of the following problems? Question Answer Date of Assessment Author Patient Health Questionnaire-2 Score 2 10/2024 3:10 PM EST Mallory Santillan MA * Little interest or pleasure in doing things Answer Date of Assessment Author More than half the days 03/30/2025 3:10 PM EST Mallory Glez MA * Feeling down, depressed, or hopeless Answer Date of Assessment Author Not at all 03/30/2025 3:10 PM EST Jolie Santillan MA * Trouble falling or staying asleep, or sleeping too much Answer Date of Assessment Author More than half the days 03/30/2025 3:10 PM Mallory Rodriguez MA * Feeling tired or having little energy Answer Date of Assessment Author More than half the days 03/30/2025 3:10 PM Mallory Rodriguez MA * Poor appetite or overeating Answer Date of Assessment Author More than half the days 03/30/2025 3:10 PM Mallory Rodriguez MA * Feeling bad about yourself - or that you are a failure or have let yourself or your family down Answer Date of Assessment Author Not at all 03/30/2025 3:10 PM Jolie Honeycutt MA * Trouble concentrating on things, such as reading the newspaper or watching television Answer Date of Assessment Author Several days 03/30/2025 3:10 PM Jolie Honeycutt MA * Moving or speaking so slowly that other people could have noticed? Or the opposite - being so fidgety or restless that you have been moving around a lot more than usual. Answer Date of Assessment Author Not at all 03/30/2025 3:10 PM Jolie Honeycutt MA * Thoughts that you would be better off or hurting yourself in some way Answer Date of Assessment Author Not at all 03/30/2025 3:10 PM Jolie Honeycutt MA * Patient Health Questionnaire-9 Score Answer Date of Assessment Author 9 03/30/2025 3:10 PM Jolie Honeycutt MA * How difficult have these problems made it for you to do your work, take care of things at home, or get along with other people? Answer Date of Assessment Author Somewhat difficult 03/30/2025 3:10 PM Mallory Honeycutt MA * Over the last 2 weeks, how often have you been bothered by any of the following problems? Question Answer Date of Assessment Author Feeling nervous, anxious, or on edge 1 10/2024 3:11 PM Mallory Honeycutt MA Not being able to stop or co ntrol worrying 1 03/30/2025 3:11 PM Mallory Honeycutt MA Worrying too much about diff erent things 1 03/30/2025 3:11 PM EST Tyrell MalloryKATELYN Trouble relaxing 1 03/30/2025 3:11 PM EST Renata reyes aMlloryKATELYN Being so restless that it is hard to sit still 0 03/30/2025 3:11 PM EST Santillan KATELYN Tejada Becoming easily annoyed or irritable 2 10/2024 3:11 PM EST Mallory Santillan MA Feeling afraid as if somethi ng awful might happen 2 03/30/2025 3:11 PM EST Santillan KATELYN Tejada CLARK-7 Total Score 8 03/30/2025 3:11 PM Mallory Honeycutt MA documented as of this encounter Progress Notes * Geo Martinez MD - 03/30/2025 2:30 PM EST DRAKE Dorantes is a 35 y.o. female who presents for No chief complaint on file.. Patient is here for a routine physical visit , her only complaint is new onset of left index fingerpain for several days. Denies any recent injury Review of Systems Constitutional: Negative for appetite change, fatigue and fever. HENT: Negative for ear pain, hearing loss and sore throat. Eyes: Negative for pain and visual disturbance. Respiratory: Negative for cough and shortness of breath. Cardiovascular: Negative for chest pain and palpitations. Gastrointestinal: Negative for abdominal pain, nausea and vomiting. Genitourinary: Negative for dysuria. Skin: Negative for rash. Neurological: Negative for dizziness and headaches. Psychiatric/Behavioral: Negative for sleep disturbance. Allergies[1] OBJECTIVE Vitals: 03/30/25 1435 BP: 124/80 BP Location: Left arm Patient Position: Sitting BP Cuff Size: Adult Pulse: 83 Resp: 16 Temp: 97.6 ??F (36.4 ??C) TempSrc: Oral SpO2: 98% Weight: 156 lb 2 oz (70.8 kg) Height: 4' 11.11 (1.501 m) Physical Exam Vitals reviewed. Constitutional: General: She is awake. Appearance: Normal appearance. She is well-developed. HENT: Head: Normocephalic and atraumatic. Right Ear: Tympanic membrane, ear canal and external ear normal. Left Ear: Tympanic membrane, ear canal and external ear normal. Nose: Nose normal. Mouth/Throat: Mouth: Mucous membranes are moist. Pharynx: Oropharynx is clear. Eyes: Extraocular Movements: Extraocular movements intact. Conjunctiva/sclera: Conjunctivae normal. Pupils: Pupils are equal, round, and reactive to light. Cardiovascular: Rate and Rhythm: Normal rate and regular rhythm. Pulses: Normal pulses. Heart sounds: Normal heart sounds. Pulmonary: Effort: Pulmonary effort is normal. Breath sounds: Normal breath sounds. Chest: Breasts: Right: Normal. No swelling, bleeding, inverted nipple, mass or nipple discharge. Left: Normal. No swelling, bleeding, inverted nipple, mass or nipple discharge. Abdominal: General: Bowel sounds are normal. Palpations: Abdomen is soft. Musculoskeletal: General: Normal range of motion. Left hand: Tenderness present. No swelling, deformity or lacerations. Normal range of motion. Cervical back: Normal range of motion and neck supple. Comments: Left index finger DIP mildly tender to palpation, no warmth, no deformity Lymphadenopathy: Upper Body: Right upper body: No supraclavicular or axillary adenopathy. Left upper body: No supraclavicular or axillary adenopathy. Skin: General: Skin is warm. Capillary Refill: Capillary refill takes less than 2 seconds. Neurological: General: No focal deficit present. Mental Status: She is alert and oriented to person, place, and time. Deep Tendon Reflexes: Reflexes are normal and symmetric. Psychiatric: Mood and Affect: Mood normal. Assessment/Plan Problem List Items Addressed This Visit Routine physical examination - Primary Routine physical exam within normal limits Preventative health care (V70.0). P.E : 03/30/2025 Normal Pap Smear: 01/09/2021 Normal Hep B series: sep 29 2014 Obesity (BMI 30-39.9) Patient has been counseled and educated about diet and exercise. Personal goal of weight loss discussed Relevant Orders Comprehensive Metabolic Panel Lipid Panel, Standard TSH with Reflex to Free T4 Other Visit Diagnoses Finger pain, left Relevant Medications meloxicam (Mobic) 15 MG tablet Other Relevant Orders XR Hand 3+ Views Left No future appointments. [1] No Known Allergies documented in this encounter Miscellaneous Notes * Assessment & Plan Note - Geo Martinez MD - 03/30/2025 2:51 PM EST Associated Problem(s): Obesity (BMI 30-39.9) Patient has been counseled and educated about diet and exercise. Personal goal of weight loss discussed * Assessment & Plan Note - Geo Martinez MD - 03/30/2025 2:50 PM EST Associated Problem(s): Routine physical examination Routine physical exam within normal limits [facility] health care (V70.0). P.E : 03/30/2025 Normal Pap Smear: 01/09/2021 Normal Hep B series: sep 29 2014 documented in this encounter Plan of Treatment Scheduled Orders Name Type Priority Associated Diagnoses Orde r Schedule Comprehensive Metabolic Panel Lab Routine Obesity (BMI 30-39.9) Ordered: 03/30/2025 Lipid Panel, Standard Lab Routine Obesity (BMI 30-39.9) Ordered: 03/30/2025 TSH with Reflex to Free T4 Lab Routine Obesity (BMI 30-39.9) Ordered: 03/30/2025 documented as of this encounter Procedures Procedure Name Priority Date/Time Associated Diagnosis Comments XR HAND 3+ VIEWS LEFT Routine 04/03/2025 4:08 PM EST Finger pain, left documented in this encounter Results * XR Hand 3+ Views Left (04/03/2025 4:08 PM EST) Anatomical Region Laterality Modality Upper Extremities, Hand Left Radiogra phic Imaging 04/03/2025 4:08 PM EST Narrative 04/03/2025 4:23 PM EST [address] [address] XRay Report Signed Patient: Yessica Marcano MR# : [id number] : 1990 Acct:[id number] Age/Sex: 35 / F ADM Date: 04/03/25 Loc: HOALFIECX Attending Dr: Geo Khan MD Ordering Physician: Geo Khan MD Date of Service: 04/03/25 Procedure(s): XR hand LT min 3V Accession Number(s): [id number] cc: Geo Khan MD Reason for Exam: left index finger pain EXAMINATION: XR HAND, LEFT CLINICAL INFORMATION: left index finger pain COMPARISON: None available. TECHNIQUE: Four views of the left hand. FINDINGS: Index finger: Mild-moderate DIP joint space narrowing. Possible subtle central erosion medially. No visible acute fracture, dislocation or suspicious bony lesion. Mild soft tissue swelling. No abnormal soft tissue calcification. Mild third DIP joint space narrowing. No acute fracture or dislocation. No erosions. No abnormal soft tissue calcification. XR/XR hand LT min 3V IMPRESSION: Mild-moderate second DIP joint space arthritis. Electronically signed by: Clifford Munoz MD 04/03/2025 04:21 PM [facility] Dictated By: Clifford Munoz MD Signed By: <Electronically signed by Clifford Munoz MD in OV> 04/03/25 1621 DD/ 1608 TD/TT: 04/03/25 1610 Information Engineer: Procedure Note Donotuseinterpreter, Image - 04/03/[address] [address] XRay Report Signed Patient: Kris Marcano# : [id number] : 1990Acct:[id number] Age/Sex: 35 / FADM Date: 04/03/25 Loc: LYNNCX Attending Dr: Geo Khan MD Ordering Physician: Geo Khan MD Date of Service: 04/03/25 Procedure(s): XR hand LT min 3V Accession Number(s): [id number] cc: Geo Khan MD Reason for Exam: left index finger pain EXAMINATION: XR HAND, LEFT CLINICAL INFORMATION: left index finger pain COMPARISON: None available. TECHNIQUE: Four views of the left hand. FINDINGS: Index finger: Mild-moderate DIP joint space narrowing. Possible subtle central erosion medially. No visible acute fracture, dislocation or suspicious bony lesion. Mild soft tissue swelling. No abnormal soft tissue calcification. Mild third DIP joint space narrowing. No acute fracture or dislocation. No erosions. No abnormal soft tissue calcification. XR/XR hand LT min 3V IMPRESSION: Mild-moderate second DIP joint space arthritis. Electronically signed by: Clifford Munoz MD 04/03/2025 04:21 PM EST RP Dictated By: Clifford Munoz MD Signed By: <Electronically signed by Clifford Munoz MD in OV> 04/03/25 1621 DD/ 1608 TD/TT: 04/03/25 1610 Information Engineer: MELANIE us Geo Martinez MD IMG XR PROCEDURES Tello casa Result - Final documented in this encounter Visit Diagnoses Diagnosis Routine physical examination- Primary Routine general medical examination at a health care facility Obesity (BMI 30-39.9) Finger pain, left Pain in soft tissues of limb documented in this encounter Additional Health Concerns Assessment Noted Time PHQ-9 Depression Total Score: 9 03/30/20 25 3:10 PM EST documented as of this encounter Care Teams Plastics And Composites Inspector Relationship Specialty Start Date End Date Geo Hinojosa MD [address] [place] [id number] PCP - General Internal Medicine 08/04/14 documented as of this encounter
--- OUTSIDE RECORDS SUMMARY | 2025-04-04 13:19 | XMS_ITS | Clinical Summary ---
Author Organization [employer] Address [address] [place] [address] Care Team Providers Care Safe And Vault Service Mechanic Name Role Phone Geo Hinojosa MD Primary [...] Encounters Date Type Department Care Team Description 04/04/2025 Results Follow-Up [facility] [address] [place] [phone] Geo Hinojosa MD XR Hand 3+ Views Left 03/30/2025 2:30 PM EST Office Visit [facility] [address] [place] [address] Geo Hinojosa MD Routine physical examination (Primary Dx); Obesity (BMI 30-39.9); Finger pain, left 03/30/2025 Travel 03/29/2025 Telephone [facility] WALK[facility]IN CENTER [address] [place] [address] Paris Yanez MA 03/23/2025 Patient Outreach [facility] & PEDS [address] [place], [place] [phone] Geo Hinojosa MD Pre-visit Planning (SDOH negative, Tobacco screening negative. ) 03/02/2025 Telephone [facility] [address] [place], [place] [phone] Geo Hinojosa MD No Show 03/01/[address] [phone] Geo Hinojosa MD chart prep 02/23/2025 Patient Outreach [facility] [address] [place] [address] Geo Hinojosa MD Pre-visit Planning ([facility] unable to reach LVM ) 01/18/2025 Telephone [facility] [address] [place] [address] Geo Hinojosa MD Appointment Confirmation 01/04/2025 Telephone [facility] WALK[facility]IN [facility] [address] [place], [place] [phone] Paris Yanez MA from Last 3 Months [...] 3-dose series) 02/28/2015 09/29/2014, 08/29/2014 COVID-19 Vaccine (2023-2 5 season) 2025 Influenza Vaccine (#1) 2025 [...] PM EST Narrative 04/03/2025 4:23 PM EST [address] [place] [address] XRay Report Signed Patient: Yessica Marcano MR# : [id number] : 1990 Acct:[id number] Age/Sex: 35 / F ADM Date: 04/03/25 Loc: HO.HHCX Attending Dr: Geo Khan MD Ordering Physician: Geo Khan MD Date of Service: 04/03/25 Procedure(s): XR hand LT min 3V Accession Number(s): [id number] cc: Geo Khan MD Reason for Exam: [...] 04/03/25 1621 DD/ 1608 TD/TT: 04/03/25 1610 Sea Air Land Officer: Procedure Note Donotuseinterpreter, Image - 04/03/2025 [facility] [address] [place] [address] XRay Report Signed Patient: Stefano MarcanoR# : [id number] : 1990Acct:[id number] Age/Sex: 35 / FADM Date: 04/03/25 Loc: HO.HHCX Attending Dr: Geo Khan MD Ordering Physician: Geo Khan MD Date of Service: 04/03/25 Procedure(s): XR hand LT min 3V Accession Number(s): [id number] cc: Geo Khan MD Reason for Exam: [...] 04/03/25 1621 DD/ 1608 TD/TT: 04/03/25 1610 Sea Air Land Officer: HB us Geo Martinez MD IMG XR PROCEDURES Tello casa Result - Final * ThinPrep Imaging Pap and HPV mRNA E6/E7 (03/16/2024 9:48 AM EDT) HPV nRNA E6/E7 Not Detected Not Detected [facility] Comment:Methodology: Transcr iption-Mediated AmplificationThis assay detects E6/E7 viral messenger RNA (mRNA) from 14high-risk HPV types (16,18,31,33,35,39,45,51,52,56,58,59,66,68).Cervical sources are required for HPV testing.If a vaginal source from a patient who has had atotal hysterectomy with removal of cervix wassubmitted, please contact the testing laboratoryfor alternative testing options.For additional information, please refer tohttp://education.[employer]/faq/LAE311b8(This link if provided for information/educational purposes only.)THIS TEST WAS PERFORMED AT:[facility] [address] [phone] JONES MD SOURCE: SEE NOTE [facility] Comment:None given Report Status: [facility] Clinical Information: SEE NOTE [facility] Comment:None given LMP: SEE NOTE [facility] Comment:NONE GIVEN Prev. PAP: SEE NOTE [facility] Comment:NONE GIVEN Prev. BX: SEE NOTE [facility] Comment:NONE GIVEN Statement Of Adequacy: SEE NOTE [facility] Comment:Satisfactory for wendie luation.Endocervical/transformation zone component absent. General Categorization: [facility] Interpretation/Result: SEE NOTE [facility] Comment:Cytology Results: Ne gative for intraepitheliallesion or malignancy. Cytology Comment SEE NOTE [facility] Comment:This Pap test has be en evaluated with computerassisted technology. Resident Assistant Cna: SEE NOTE [facility] Comment:RXB, CT(ASCP)CT scre ening location: [address] [address] Review Resident Assistant Cna: [facility] Pathologist [facility] PAP Infection SEE NOTE [facility] Comment:Shift in vaginal caitlyn ra suggestive of bacterialvaginosis. See Note SEE NOTE [facility] Comment:EXPLANATORY NOTE:The Pap is a screening test for cervical cancer. It isnot a diagnostic test and is subject to false negativeand false positive results. It is most reliable when asatisfactory sample, regularly obtained, is submittedwith relevant clinical findings and history, and whenthe Pap result is evaluated along with historic andcurrent clinical information. 03/16/2024 9:48 AM EDT 03/16/2024 4:39 PM EDT Narrative [facility] - 03/22/2024 10:51 AM EDT SEE SCANNED RESULTS IN EMR us Neisha Wiley CNM LAB PATHOLOGY ORDERABLES Final Result [facility] [address] [place] [address] [phone] from Last 3 Months or Most Recently Relevant to Health Maintenance Insurance [facility] C3 Care Teams Safe And Vault Service Mechanic Relationship Specialty Start Date End Date Geo Hinojosa MD [address] [place] [phone] PCP - General Internal Medicine 08/04/14
--- OUTSIDE RECORDS SUMMARY | 2025-04-04 13:19 | XMS_ITS | Encounter Summary ---
Author Organization [employer] Address [address] [place] [address] Care Team Providers Care Restaurant And Bar Manager Name Role Phone Geo Hinojosa MD Primary [...] documented as of this encounter Care Teams Restaurant And Bar Manager Relationship Specialty Start Date End Date Geo Hinojosa MD [address] [place] [address] PCP - General Internal Medicine 08/04/14 documented as of this encounter
--- OUTSIDE RECORDS SUMMARY | 2025-04-04 13:19 | XMS_ITS | Encounter Summary ---
Author Organization [employer] Address [address] [place] [address] Care Team Providers Care Geography Faculty Member Name Role Phone Geo Hinojosa MD Primary Care Provide r Reason for Visit * Reason Onset Date Comments Results 04/04/2025 Encounter Details Date Type Department Care Team ([facility] st Contact Info) Description 04/04/2025 Results Follow-Up [facility] [address] [place] [address] Geo Hinojosa MD [address] [place] [address] XR Hand 3+ Views Left Social History Tobacco Use Types Packs/Day Years [...] encounter Miscellaneous Notes * Telephone Encounter - Akiko Dutton RN - 04/04/2025 12:33 PM EST Telephone call placed to pt regarding below results and POC. Informed of arthritis. Advised to takemeloxicam as Rxd and let us know if pain persists or worsens. Reminded to complete fasting labs that are outstanding when she can. Pt verbalized understanding and denied having any further questions or concerns at this time. * Telephone Encounter - Akiko Dutton RN - 04/04/2025 12:29 PM EST ----- Message from Geo Martinez MD sent at 04/04/2025 11:45 AM EST ----- Please let patient know, her x-ray of left index finger, showed: mild-mod arthritis, continue to take NSAIDS as prescribed and let us know if pain worsens or does not improve with treatment ----- Message ----- From: Jamison Aaron Results In Sent: 04/03/2025 4:24 PM EST To: Geo Martinez MD * Result Encounter Note - Geo Martinez MD - 04/04/2025 11:45 AM EST Please let patient know, her x-ray of left index finger, showed: mild-mod arthritis, continue to take NSAIDS as prescribed and let us know if pain worsens or does not improve with treatment documented in this encounter Plan of Treatment Not on file documented as of this encounter Visit Diagnoses Not on filedocumented in this encounter Additional Health Concerns Assessment Noted Time PHQ-9 Depression Total Score: 9 03/30/20 25 3:10 PM EST documented as of this encounter Care Teams Geography Faculty Member Relationship Specialty Start Date End Date Geo Hinojosa MD [address] [place] [address] PCP - General Internal Medicine 08/04/14 documented as of this encounter
[2025-04-04 14:17] LABS: Alanine Aminotransferase 14 U/L (0-31); Albumin Level 4.3 g/dL (3.5-5.0); Alkaline Phosphatase 95 U/L (39-117); Anion Gap 11 (12-20); Aspartate Amino Transferase 30 U/L (5-31); Blood Urea Nitrogen 12 mg/dL (9-16); Calcium 9.3 mg/dL (8.4-10.2); Carbon Dioxide 26 mmol/L (22-29); Chloride 106 mmol/L (96-108); Cholesterol 185 mg/dL (<200); Estimated Glomerular Filt Rate > 60; HDL Cholesterol 47 mg/dL (>40); Potassium 3.6 mmol/L (3.3-5.1); Sodium 139 mmol/L (135-145); Total Protein 8.4 g/dL (6.5-8.0); Triglycerides 100 mg/dL (<150)
== END 2025-04-04 11:10 | disposition home or self-care (01) ==
LOC: HO.HHCL 11:09
PROVIDERS: PCP Internal Medicine; Visit Provider Internal Medicine
DX: E66.9 Obesity, unspecified (principal)
CPT/HCPCS: 36415; 80053; 80061; 84443